=== PATIENT | female | born 1995 | race Caucasian/White ===

== ENCOUNTER 2019-11-01 09:13 | Emergency (ER) | payer OTHER ==
--- NOTE | 2019-11-01 10:06 | ULT ---
US Gallbladder RUQ: 11/01/2019 9:21 AM CLINICAL HISTORY: Right lower quadrant pain with nausea. STUDY: Limited right upper quadrant ultrasound of abdomen. COMPARISON: None. FINDINGS: Liver: Size: Normal. Echogenicity: Normal. Contour: Smooth. Mass: None. Bile ducts: No intrahepatic or extrahepatic biliary dilatation. Common bile duct measures 3 mm. Gallbladder: A large gallstone is seen in the gallbladder which is nonmobile Pancreas: Head, body, and tail appear normal. Right kidney: No pelvicalyceal dilatation. Right kidney measuring 10.3 cm in length. IMPRESSION: Cholelithiasis
[2019-11-01] MEDS ORDERED: Haloperidol Lactate 5 MG/ML VIAL ONE (11:01)
== END 2019-11-01 12:04 | disposition home or self-care (01) ==
LOC: ERS 09:13
DX: F12.988 Cannabis use, unspecified with other cannabis-induced disorder (principal); R11.2 Nausea with vomiting, unspecified; R19.7 Diarrhea, unspecified; F31.9 Bipolar disorder, unspecified; E03.9 Hypothyroidism, unspecified; I10 Essential (primary) hypertension; R73.03 Prediabetes; F41.9 Anxiety disorder, unspecified; F43.10 Post-traumatic stress disorder, unspecified; F90.9 Attention-deficit hyperactivity disorder, unspecified type; G47.00 Insomnia, unspecified; F17.210 Nicotine dependence, cigarettes, uncomplicated
CPT/HCPCS: 76705; 96372; J1630

== ENCOUNTER 2020-06-09 03:26 | Emergency (ER) | payer OTHER | END 2020-06-09 06:32 | disposition home or self-care (01) | LOC: ERS 03:26 | DX: K80.20 Calculus of gallbladder without cholecystitis without obstruction (principal); E03.9 Hypothyroidism, unspecified; I10 Essential (primary) hypertension; F17.210 Nicotine dependence, cigarettes, uncomplicated | CPT/HCPCS: 76705 ==

== ENCOUNTER 2020-09-05 12:00 | Emergency (ER) | payer OTHER ==
[2020-09-05] MEDS ORDERED: Lidocaine 1% (PF) 30 ML VIAL ONE (13:41)
[2020-09-05] MEDS ORDERED: Ketorolac Tromethamine 30 MG/ML VIAL ONE (13:44)
== END 2020-09-05 16:10 | disposition home or self-care (01) ==
LOC: ERS 12:00 → EEVIPCON 12:00 → ERS 16:10
DX: S02.40CA Maxillary fracture, right side, initial encounter for closed fracture (principal); S01.411A Laceration without foreign body of right cheek and temporomandibular area, initial encounter; S01.81XA Laceration without foreign body of other part of head, initial encounter; S01.511A Laceration without foreign body of lip, initial encounter; I10 Essential (primary) hypertension; E03.9 Hypothyroidism, unspecified; F17.210 Nicotine dependence, cigarettes, uncomplicated; Y04.8XXA Assault by other bodily force, initial encounter
CPT/HCPCS: 12014; 70486; 96372; J1885; J2001

== ENCOUNTER 2022-01-12 01:51 | Emergency (ER) | payer OTHER ==
[2022-01-12] MEDS ORDERED: Ketorolac Tromethamine 30 MG/ML VIAL ONE (02:49)
[2022-01-12] MEDS ORDERED: Morphine 4 MG/ML VIAL ONE (02:49)
== END 2022-01-12 03:06 ==
LOC: ERS 01:51
DX: K80.20 Calculus of gallbladder without cholecystitis without obstruction (principal); I10 Essential (primary) hypertension; E03.9 Hypothyroidism, unspecified; F17.210 Nicotine dependence, cigarettes, uncomplicated
CPT/HCPCS: 76705; 96374; 96375; J1885; J2270

== ENCOUNTER 2023-02-15 18:57 | Emergency (ER) | payer OTHER, SELFPAY ==
[2023-02-15 20:11] LABS: SARS-CoV-2 NAA Rapid Test Not Detected (NotDetected)
== END 2023-02-15 20:42 | disposition home or self-care (01) ==
LOC: ERS 18:57
DX: B34.9 Viral infection, unspecified (principal); E03.9 Hypothyroidism, unspecified; F17.210 Nicotine dependence, cigarettes, uncomplicated; I10 Essential (primary) hypertension; Z20.822 Contact with and (suspected) exposure to COVID-19
CPT/HCPCS: 71046; 87081; 87430

== ENCOUNTER 2023-03-15 20:49 | Emergency (ER) | payer OTHER ==
[2023-03-15 22:06] LABS: #Eosinphils 0.1 thou/uL (0.0-0.7); #Monocytes 0.8 thou/uL (0.11-0.59); #Neutrophils 6.3 thou/uL (1.40-6.50); %Basophils 0.4 % (0.0-1.0); %Eosinophils 0.8 % (0.0-10.0); %Lymphocytes 27.6 % (21.0-51.0); %Neutrophils 62.9 % (42.0-75.0); Hematocrit 39.4 % (36.0-47.0); Hemoglobin 13.5 g/dL (12.0-16.0); Mean Corpuscular HGB CONC 34.3 g/dL (32.0-36.0); Mean Corpuscular Hemoglobin 29.9 pg (27.0-31.0); Mean Corpuscular Volume 87.4 fl (78.0-98.0); Platelet Count 290 10x3/uL (130-400); RBC Distribution Width 12.3 % (11.5-14.5); Red Blood Cell (RBC) Count 4.51 mill/uL (4.20-5.40)
[2023-03-15 22:16] LABS: BHCG - Serum Negative (NEGATIVE); Pregs Control Background? CLEAR/WHITE (CLR/WHITE); Pregs Control Bar Appear? YES (CONTROL BAR)
[2023-03-15] MEDS ORDERED: Metoclopramide HCl 10 MG/2 ML VIAL ONE (22:23)
[2023-03-15 22:32] LABS: ALT (SGPT) 45 U/L (8-55); AST (SGOT) 22 U/L (5-34); Albumin 4.9 g/dL (3.5-5.0); Alkaline Phosphatase 78 U/L (40-110); Anion Gap 14 mmol/L (10-20); BUN (Urea Nitrogen) 16 mg/dL (7.0-18.7); Bilirubin, Total 0.2 mg/dL (0.2-1.2); Calc. Creatinine Clearance 0 mL/min (70-130); Calcium 10.1 mg/dL (7.8-10.44); Carbon Dioxide 21 mmol/L (22-29); Chloride 108 mmol/L (98-107); Estimated GFR 124; Globulin 2.8 g/dL (2.4-3.5); Glucose 90 mg/dL (70-105); Potassium 3.8 mmol/L (3.5-5.1); Protein, Total 7.7 g/dL (6.0-8.3); Sodium 139 mmol/L (136-145)
== END 2023-03-15 23:30 | disposition home or self-care (01) ==
LOC: ERS 20:49
DX: S09.90XA Unspecified injury of head, initial encounter (principal); F17.210 Nicotine dependence, cigarettes, uncomplicated; V79.9XXA Bus occupant (driver) (passenger) injured in unspecified traffic accident, initial encounter
CPT/HCPCS: 70450; 72125; 80053; 84703; 85025; 96374; J2765